=== PATIENT | male | born 1995 | race Hispanic/Latino ===

== ENCOUNTER 2018-03-04 09:53 | Emergency (ER) | payer SELFPAY ==
--- NOTE | 2018-03-04 11:40 | CT ---
CT BRAIN WITHOUT CONTRAST: History: Head injury, dizziness, no loss of consciousness, pain on the top of the head. FINDINGS: No evidence of infarct, hemorrhage, midline shift or abnormal extraaxial fluid collections are seen. The ventricular size is normal the bibasilar cisterns patent. The bony calvarium is intact. The visua lized paranasal sinuses and mastoid air cells are well aerated. IMPRESSION: No CT evidence of acute intracranial process. POS: [facility]
== END 2018-03-04 10:27 | disposition home or self-care (01) ==
LOC: SCSER 09:53
DX: S00.03XA Contusion of scalp, initial encounter (principal); W20.8XXA Other cause of strike by thrown, projected or falling object, initial encounter; Y99.0 Civilian activity done for income or pay
CPT/HCPCS: 70450